=== PATIENT | female | born 1960 ===

== ENCOUNTER 2023-12-12 10:54 | Emergency (ER) | payer OTHER, SELFPAY ==
--- NOTE | ~2023-12-12 | XR_ITS ---
EXAMINATION: XR CHEST 2 VIEW CLINICAL INFORMATION: Chest pain COMPARISON: None TECHNIQUE: PA and lateral views of the chest obtained. FINDINGS: Linear atelectasis or scar is evident at the left base laterally, and patchy atelectasis or infiltrate is evident in the retrocardiac left lower lobe. The right lung is clear. There are no pleural effusions. The cardiomediastinal silhouette is normal. XR/XR chest 2V IMPRESSION: 1. Retrocardiac left lower lobe atelectasis or pneumonia. Follow-up is recommended to confirm clearing.
--- NOTE | ~2023-12-12 | CT_ITS ---
EXAMINATION: CT ANGIOGRAM OF THE CHEST WITH AND WITHOUT CONTRAST (CT PULMONARY ANGIOGRAM FOR PE) CLINICAL INFORMATION: Chest pain COMPARISON: Chest x-ray of 12/12/2023 TECHNIQUE: Prior to contrast administration, noncontrast localization images were obtained. Subsequently, multidetector volumetric imaging was performed from the thoracic inlet to below the diaphragms following the administration of 65 mL Omnipaque 350 intravenous contrast. No contrast reaction reported Sagittal, coronal, and MIP oblique sagittal reformatted images were obtained on the CT workstation, uploaded to PACS, and reviewed. This CT examination was performed using dose optimization techniques as appropriate, variously including the following: *Automated exposure control *Adjustment of mA and/or kV according to patient size (this includes techniques or standardized protocols for targeted exams where dose is matched to indication/reason for exam; i.e. extremities or head) *Use of iterative reconstruction technique Total exam dose-length product 375 mGy-cm FINDINGS: QUALITY OF STUDY/CONTRAST BOLUS: Adequate. Mildly degraded by respiratory motion. PULMONARY ARTERIES: No pulmonary emboli. THORACIC AORTA: No aneurysm. LUNG: Low lung volumes with patchy bibasilar atelectasis. No suspicious mass, nodule or consolidation. PLEURA: No pleural effusion or pneumothorax. MEDIASTINUM: Normal heart size. No pericardial effusion. No hilar or mediastinal lymphadenopathy. No evidence of septal bowing or right heart strain. CORONARY ARTERY CALCIFICATION: None visualized on this study. CHEST WALL/AXILLA: No axillary or internal mammary lymphadenopathy. OSSEOUS STRUCTURES: No acute or suspicious osseous abnormality. UPPER ABDOMEN: Unremarkable. No reflux of contrast into the hepatic veins to suggest elevated right heart pressures. CT/CT angio chest PE protocol IMPRESSION: No evidence of central pulmonary embolus, aortic dissection or pneumothorax. VTE: negative
[2023-12-12 11:01] VITALS: BP 188/95; PULSE 112; RESP 18; TEMP 35.8; O2SAT 95; BMI 41.9
--- NOTE | 2023-12-12 11:02 | ED_ITS ---
HPI - General Adult General Chief complaint: Chest Pain Stated complaint: tingling down l arm Time Seen by Provider: 12/12/23 12:47 History of Present Illness HPI narrative: Patient is a 63-year-old female presents today with having chest pain that has been ongoing for the last 5 days. Has a history of diabetes. History of hypertension history of high cholesterol. No history of smoking never had a heart attack. The pain is dull it is constant there has no specific trigger it is not made worse with ambulation. Patient is from home. There is no leg swelling. There is no history of blood clot. Patient not on blood thinners. Related Data Allergies Allergy/AdvReac Type Severity Reaction Status Date / Time diphenhydramine Allergy Hives Verified 12/12/23 11:06 [From Benadryl] Penicillins Allergy Hives Verified 12/12/23 11:06 Review of Systems 2 Review of Systems: Positive chest pain PMFSH Past Medical History Attestation statement: The following information was validated with the patient. Social History Social History Smoked in Last 30 Days: No Advance Directives: No Advance Directives Information Provided: No Physical Exam ED Vital Signs: Vital Signs - 24 hr 12/12/23 11:01 12/12/23 12:48 Temperature 96.5 F L 98.7 F Pulse Rate 112 H 104 H Respiratory Rate 18 17 Blood Pressure 188/95 H 158/79 H Pulse Oximetry 95 96 Oxygen Delivery Method Room Air Room Air BMI result Body Mass Index 41.9 Appearance: Alert. Oriented X3. No acute distress. Eyes: Pupils equal, round and reactive to light. ENT: Pharynx normal. Neck: Normal inspection. Neck supple. No lymph nodes noted. No crepitus CVS: Normal heart rate and rhythm. Pulses normal. Normal S1 and S2 Respiratory: No respiratory distress. Breath sounds normal. No Wheezing. No rales Abdomen: Soft and nontender. No rigidity. No distention. good BS x4 Skin: Skin warm and dry. Normal skin color. Normal skin turgor. Extremities: No lower extremity edema. Neurovascular intact to all extremities. No Lacerations. No Rash Neuro: Oriented X 3. No motor deficit. No sensory deficit. Moving all extermities. No slurred speech Course Course Course Narrative: RME- 63 year old female presents for evaluation of chest tightness, left arm tingling for the last 3 days. She also complains of dizziness. Plan for labs and an EKG Medications Administered Discontinued Medications Generic Name Dose Route Start Last Admin Trade Name Lea PRN Reason Stop Dose Admin Sodium Chloride 1,000 mls @ 999 mls/hr 12/12/23 13:45 12/12/23 15:17 Ns IV 12/12/23 14:45 999 mls/hr .Q1H1M CRYSTAL Administration Insulin Human Regular 10 unit 12/12/23 13:31 12/12/23 14:45 Insulin Regular, Human 100 Unit/Ml 3 Ml Vial 0.1 unit/kg (10 unit) 12/12/23 13:32 Not Given IVPUSH ONCE ONE Iohexol 100 ml 12/12/23 15:04 12/12/23 15:05 Iohexol 350 Mg/Ml 100 Ml Infus..Btl IV 12/12/23 15:05 65 ml ONCE ONE Administration Medical Decision Making Medical Decision Making [facility] Narrative: Patient's chest pain is constant. There is no fever no chills it has been ongoing for approximately 4-5 days. Patient's troponin is less than 2.7 making ACS unlikely. My initial interpretation of patient's EKG showed a sinus rhythm heart rate is 110 VA QRS QTC within normal limits is no acute ST segment elevation. My chest x-ray interpretation is grossly negative for any acute evidence of pneumonia pneumothorax I reviewed radiology's reading which showed a question atelectasis question infiltrate. Because patient had tachycardia chest pain a CTA of the chest was done. There was no evidence for dissection there is no evidence for PE there has no evidence for pneumonia there has no evidence for pneumothorax. In this setting will discharge patient home close follow-up on an outpatient basis. Differential Diagnosis Differential Diagnoses: The differential diagnosis associated with the presentation includes ACS, pneumonia, pneumothorax, rib fracture Admission/Observation Consideration of admission/observation: Escalation of care including admission/observation considered Lab Data [facility] Lab Attestation statement: I reviewed the patient's lab results. 12/12/23 11:16 12/12/23 11:16 Labs: Lab Results 12/12/23 12/12/23 Range/Units 11:16 14:41 WBC 5.4 (4.8-10.8) X10*3/uL RBC 4.71 (4.20-5.50) X10*6/uL Hgb 14.2 (12.0-16.0) g/dl Hct 42.4 (37.0-47.0) % MCV 90.0 (80.0-98.0) fL MCH 30.1 (27.0-33.0) pg MCHC 33.5 (31.0-35.0) g/dl RDW 12.6 (11.0-16.0) % Plt Count 213 (160-400) X10*3/uL MPV 9.7 (9.4-12.3) fL Immature Gran % (Auto) 0.4 (0.0-0.4) % Neut % (Auto) 49.9 (45-73) % Lymph % (Auto) 34.9 (20-40) % Rains % (Auto) 11.6 H (2-11) % Eos % (Auto) 2.6 (0-4) % Baso % (Auto) 0.6 (0-2) % Lymph # (Auto) 1.9 (1.2-4.9) X10*3/uL Rains # (Auto) 0.6 (0.1-1.2) X10*3/uL Eos # (Auto) 0.1 (0.0-0.4) X10*3/uL Baso # (Auto) 0.0 (0.0-0.2) X10*3/uL Abs Immat Gran (auto) 0.02 (0.00-0.03) X10*3/uL Absolute Neuts (auto) 2.7 (2.0-8.3) x10*3/uL Absolute Nucleated RBC 0.000 (0.0-0.012) X10*3/uL Nucleated RBC % (auto) 0.0 (0.0-0.2) /100WBC Sodium 139 (135-145) mmol/L Potassium 4.2 (3.3-5.1) mmol/L Chloride 104 (96-108) mmol/L Carbon Dioxide 25 (22-29) mmol/L Anion Gap 14 (12-20) BUN 11 (9-16) mg/dL Creatinine 0.87 (0.5-1.4) mg/dL Estim Creat Clear Calc 74.8 Estimated GFR > 60 POC Glucose 265 H (60-115) mg/dL Random Glucose 422 H* (60-115) mg/dL Calcium 9.0 (8.4-10.2) mg/dL Magnesium 1.8 (1.6-2.6) mg/dL Total Bilirubin 0.4 (0.0-1.0) mg/dL AST 30 (5-31) U/L ALT 41 H (0-31) U/L Alkaline Phosphatase 148 H (39-117) U/L Troponin I High Sens < 2.7 (<3.5-17.0) ng/L Total Protein 7.5 (6.5-8.0) g/dL Albumin 4.2 (3.5-5.0) g/dL Lipase 15 (8-78) U/L Independent Interpretation I performed an independent interpretation of an: EKG (Sinus heart rate is 110 VA QRS QTC within normal limits is no acute ST segment elevation), Plain X-Ray (Grossly negative) and CT Scan (CTA showed no evidence of dissection no evidence for PE no evidence for pneumonia no evidence for rib fracture) Radiology Impression Discussion of test interpretation with radiology: I have reviewed the radiologist's reading. Chronic Conditions Patient?s care impacted by: Diabetes and Hypertension Discharge Plan Discharge Clinical Impression: Chest pain Instructions: Chest Pain (DC) Referrals: Randell Lee MD [Physician] - Print Language: English
--- NOTE | 2023-12-12 11:06 | ECG_ITS ---
Test Reason : CHEST PAIN Blood Pressure : / mmHG Vent. Rate : 111 BPM Atrial Rate : 111 BPM P-R Int : 176 ms QRS Dur : 102 ms QT Int : 346 ms P-R-T Axes : 044 -15 038 degrees QTc Int : 470 ms Sinus tachycardia cannot exclude Inferior infarct , age undetermined Cannot rule out Anterior infarct , age undetermined Abnormal ECG No previous ECGs available Referred By: Juan Pablo Desir Electronically Signed By:RUSTY KRISHNAMURTHY
[2023-12-12 11:21] LABS: MANUAL DIFF FLAG NO
[2023-12-12 11:39] LABS: Alanine Aminotransferase 41 U/L (0-31); Albumin Level 4.2 g/dL (3.5-5.0); Alkaline Phosphatase 148 U/L (39-117); Anion Gap 14 (12-20); Aspartate Amino Transferase 30 U/L (5-31); Basophils Percent Auto 0.6 % (0-2); Bilirubin Total 0.4 mg/dL (0.0-1.0); Blood Urea Nitrogen 11 mg/dL (9-16); Carbon Dioxide 25 mmol/L (22-29); Chloride 104 mmol/L (96-108); Creatinine Clr Calc Pharmacy 74.8; Eosinophils Absolute Auto 0.1 X10*3/uL (0.0-0.4); Eosinophils Percent Auto 2.6 % (0-4); Estimated Glomerular Filt Rate > 60; Hematocrit 42.4 % (37.0-47.0); Hemoglobin 14.2 g/dl (12.0-16.0); Imm Gran Abs Auto 0.02 X10*3/uL (0.00-0.03); Imm Gran Pct Auto 0.4 % (0.0-0.4); Lipase 15 U/L (8-78); Lymphocytes Absolute Auto 1.9 X10*3/uL (1.2-4.9); Lymphocytes Percent Auto 34.9 % (20-40); Magnesium 1.8 mg/dL (1.6-2.6); Mean Corpuscular HGB Conc 33.5 g/dl (31.0-35.0); Mean Corpuscular Hemoglobin 30.1 pg (27.0-33.0); Mean Platelet Volume 9.7 fL (9.4-12.3); Monocytes Absolute Auto 0.6 X10*3/uL (0.1-1.2); Monocytes Percent Auto 11.6 % (2-11); Neutrophils Absolute Auto 2.7 x10*3/uL (2.0-8.3); Neutrophils Percent Auto 49.9 % (45-73); Platelet Count 213 X10*3/uL (160-400); Potassium 4.2 mmol/L (3.3-5.1); Red Blood Count 4.71 X10*6/uL (4.20-5.50); Red Cell Distribution Width 12.6 % (11.0-16.0); Sodium 139 mmol/L (135-145); Total Protein 7.5 g/dL (6.5-8.0); White Blood Count 5.4 X10*3/uL (4.8-10.8)
[2023-12-12 11:40] LABS: Glucose Random 422 mg/dL (60-115)
[2023-12-12 12:48] VITALS: BP 158/79; PULSE 104; RESP 17; TEMP 37.1; O2SAT 96
[2023-12-12 14:13] LABS: Troponin-I High Sensitivity < 2.7 ng/L (<3.5-17.0)
[2023-12-12 14:45] LABS: Glucose, Whole Blood 265 mg/dL (60-115)
--- NOTE | 2023-12-12 14:45 | PC.NURSE ---
Patient refusing insulin, attending aware.
[2023-12-12] MEDS: iohexoL 350 MG/ML 100 ML INFUS..BTL IV (15:05)
[2023-12-12] MEDS: 0.9 % Sodium Chloride 1,000 ML 999 ML IV (15:17)
[2023-12-12 16:13] LABS: Troponin-I High Sensitivity < 2.7 ng/L (<3.5-17.0)
== END 2023-12-12 16:42 | disposition home or self-care (01) ==
PROVIDERS: Physician Assistant; Emergency Provider Emergency Medicine Emergency Medical Services
DX: R07.9 Chest pain, unspecified (principal); E11.9 Type 2 diabetes mellitus without complications; I10 Essential (primary) hypertension
CPT/HCPCS: 36415; 71046; 71275; 80053; 82947; 83690; 83735; 84484; 85025; 93005; 99284; 99285; Q9967

== ENCOUNTER → 2023-12-12 11:06 | Outpatient (BNV) | payer OTHER, SELFPAY | PROVIDERS: Emergency Provider Emergency Medicine Emergency Medical Services; Visit Provider Internal Medicine | DX: R00.0 Tachycardia, unspecified (principal); R94.31 Abnormal electrocardiogram [ECG] [EKG] | CPT/HCPCS: 93010 ==